=== PATIENT | male | born 1940 | race African-American/Black ===

== ENCOUNTER 2022-05-12 09:52 | Emergency (ER) | payer OTHER ==
[2022-05-12] MEDS ORDERED: Magnesium 2 GM/50 ML BAG (IN WATER) ONE (10:30)
[2022-05-12] MEDS ORDERED: predniSONE 20 MG TAB ONE (10:30)
[2022-05-12 10:59] LABS: Hemoglobin 10.5 g/dL (13.5-17.5); Mean Corpuscular HGB CONC 32.9 g/dL (32.0-36.0); Mean Corpuscular Hemoglobin 27.3 pg (27.0-33.0); Mean Corpuscular Volume 83.1 fl (81.2-95.1); Mean Platelet Volume 10.7 fl (7.4-10.4); Platelet Count 298 10x3/uL (150-450); RBC Distribution Width 14.5 % (11.5-14.5); Red Blood Cell (RBC) Count 3.84 10x6/uL (4.32-5.72); White Blood Cell (WBC) Count 23.2 10x3/uL (3.5-10.5)
[2022-05-12 11:03] LABS: Lactic Acid 1.7 mmol/L (0.5-2.2)
[2022-05-12 11:09] LABS: ALT (SGPT) 13 U/L (8-55); AST (SGOT) 13 U/L (5-34); Alkaline Phosphatase 79 U/L (40-110); Anion Gap 13 mmol/L (10-20); BUN (Urea Nitrogen) 40 mg/dL (8.4-25.7); Bilirubin, Total 0.6 mg/dL (0.2-1.2); Calc. Creatinine Clearance 0 mL/min (70-130); Carbon Dioxide 27 mmol/L (23-31); Chloride 101 mmol/L (98-107); Estimated GFR 52; Globulin 2.8 g/dL (2.4-3.5); Glucose 150 mg/dL (83-110); Potassium 4.3 mmol/L (3.5-5.1); Protein, Total 5.8 g/dL (5.8-8.1); Sodium 137 mmol/L (136-145)
[2022-05-12 11:12] LABS: Troponin I 0.015 ng/mL (< 0.028)
[2022-05-12 11:31] LABS: MDiff Complete? YES; Manual Diff?? YES
[2022-05-12 11:41] LABS: Band 9 % (5-11); Eosinophils 1 % (0-10); Monocytes 6 % (0-10); Neutrophil 84 % (42-75)
[2022-05-12 11:43] LABS: Dohle Bodies SLIGHT; Platelet Morphology Comment Appears Adequate; Toxic Granulation SLIGHT; Vacuoles SLIGHT
[2022-05-12] MEDS ORDERED: Cefepime 2 GM VIAL ONE (12:00)
[2022-05-12] MEDS ORDERED: Iopamidol 370 76% 100 ML VIAL ONE (13:51)
[2022-05-12 14:19] LABS: SARS-CoV-2 NAA Rapid Test Not Detected (NotDetected)
[2022-05-12] MEDS ORDERED: Vancomycin 1.5 GRAM/300 ML BAG 1.5 GM in Premix Bag 1 BAG IVPB SCH (15:00)
[2022-05-12 15:46] LABS: Bilirubin Neg (Negative); Blood, Urine 25 (Negative); Clarity Slightly Cloudy (Clear); Glucose, Urine (Dipstick) Normal (Negative); Ketone, Urine 5 mg/dL (Negative); Leukocyte Negative (Negative); Nitrite Negative (Negative); Protein, Urine (Dipstick) 30 mg/dl (Neg-Trace); Urobilinogen Normal mg/dL (Less than 2)
[2022-05-12 15:55] LABS: Bacteria/HPF None Seen HPF (None Seen); Squamous Epithelial 0-3 HPF (0-3); WBC/HPF 0-3 HPF (0-3)
== END 2022-05-12 16:48 | disposition short-term general hospital (02) ==
LOC: CSHERS 09:52
DX: A41.9 Sepsis, unspecified organism (principal); J18.9 Pneumonia, unspecified organism; J44.9 Chronic obstructive pulmonary disease, unspecified; I10 Essential (primary) hypertension; E11.9 Type 2 diabetes mellitus without complications
CPT/HCPCS: 36415; 71045; 71275; 80053; 81003; 81015; 83605; 83880; 84484; 85025; 85379; 87040; 87086; 93005; 96365; 96366; 96367; J0692; J3370; J3475; J7512; J7620; Q9967; U0002